=== PATIENT | male | born 1955 ===

== ENCOUNTER 2020-08-20 11:42 | Emergency (ER) | payer SELFPAY ==
[~2020-08-20] VITALS: Ht 182.9 cm; Wt 92.2 kg
[2020-08-20 11:50] VITALS: BP 158/88
--- NOTE | 2020-08-20 12:05 | NUR ---
slurry tank tender completed. UA sample obtained and held until orders present.
--- NOTE | 2020-08-20 12:23 | NUR ---
at bedside for exam.
--- NOTE | 2020-08-20 12:37 | NUR ---
Lab at bedside for draw.
[2020-08-20 12:44] LABS: BASOPHILS % (AUTO) 1 % (0-1); EOSINOPHILS % (AUTO) 0 % (1-7); LYMPHOCYTES % (AUTO) 10 % (22-44); MEAN CORPUSCULAR HEMOGLOBIN 32.3 pg (27.5-34.5); MEAN CORPUSCULAR HGB CONC 33.8 g/dL (33.2-36.2); MEAN PLATELET VOLUME 7.9 fL (7.4-10.4); MONOCYTES % (AUTO) 6 % (2-9); NEUTROPHILS % (AUTO) 84 % (42-75); PLATELET COUNT 223 x10^3/uL (130-400); RED BLOOD COUNT 4.63 x10^6/uL (4.38-5.82); RED CELL DISTRIBUTION WIDTH 14.1 % (9.4-14.8)
[2020-08-20 12:58] LABS: ALANINE AMINOTRANSFERASE 49 U/L (12-78); ALBUMIN 3.9 g/dL (3.4-5.0); ANION GAP 8 mmol/L (5-15); CALCIUM 9.6 mg/dL (8.5-10.1); CHLORIDE 108 mmol/L (98-107); CREATININE 0.96 mg/dL (0.7-1.3)
[2020-08-20 13:01] LABS: ALKALINE PHOSPHATASE 51 U/L (45-117); BILIRUBIN,TOTAL 0.7 mg/dL (0.2-1.0); TOTAL PROTEIN 7.2 g/dL (6.4-8.2)
--- NOTE | 2020-08-20 13:11 | NUR ---
Pt up to use the restroom. UA orders now present and sample sent to lab.
[2020-08-20 13:22] LABS: MICROSCOPIC AUTO
== END 2020-08-20 14:03 | disposition home or self-care (01) ==
LOC: ED 13:57
DX: N23 Unspecified renal colic (principal); I10 Essential (primary) hypertension; E78.5 Hyperlipidemia, unspecified
CPT/HCPCS: 36415; 74176; 80053; 81001; 83690; 85025; 99284